=== PATIENT | female | born 1970 | race Caucasian/White ===

== ENCOUNTER 2018-12-24 11:33 | Outpatient (CLI) | payer BC ==
--- NOTE | 2018-12-24 13:27 | XRAY Report ---
Reason: VIRAL SYNDROME,DYSPNEA Procedure Date: 12/24/2018 Accession Number: [id number] / [id number] Procedure: XR - Chest 2 View X-Ray CPT Code: 03899 FULL RESULT: EXAM: CHEST RADIOGRAPHY EXAM DATE: 12/24/2018 12:11 PM. CLINICAL HISTORY: Viral syndrome, dyspnea. COMPARISON: None. TECHNIQUE: 2 views. FINDINGS: Lungs/Pleura: Bilateral airway thickening can be seen in the setting of bronchiolitis or reactive airways disease. No focal lung parenchymal consolidation identified to suggest superimposed pneumonia. No pleural effusion or pneumothorax. Mediastinum: Heart and mediastinal contours are unremarkable. Other: None. IMPRESSION: Bilateral airway thickening most suggestive of bronchitis given provided history. [facility]
== END 2018-12-24 11:34 | disposition home or self-care (01) ==
LOC: DI 11:33
PROVIDERS: ATTEND Family Medicine
DX: B34.9 Viral infection, unspecified (principal); R06.00 Dyspnea, unspecified
CPT/HCPCS: 71046

== ENCOUNTER 2020-02-14 18:36 | Emergency (ER) | payer OTHER ==
[2020-02-14 18:48] VITALS: BP 166/103
--- NOTE | 2020-02-14 19:06 | ED Physician Documentation ---
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 It is painless.) Review of Systems Constitutional: reports: Reviewed and negative Cardiac: reports: Reviewed and negative Respiratory: reports: Reviewed and negative PD PAST MEDICAL HISTORY - Past Medical History Past Medical History: Yes Psych: Depression - Past Surgical History Past Surgical History: No - Present Medications Home Medications: Ambulatory Orders Medication Instructions Recorded Confirmed Bupropion HCl [Wellbutrin Xl] 300 mg PO DAILY 02/14/20 02/14/20 - Allergies Allergies/Adverse Reactions: Allergies Allergy/AdvReac Type Severity Reaction Status Date / Time cefaclor [From Ceclor] Allergy Rash Verified 02/14/20 18:49 hydrocodone Allergy Hallucinati Verified 02/14/20 18:49 ons Sulfa (Sulfonamide Allergy Rash Verified 02/14/20 18:49 Antibiotics) latex AdvReac Rash Verified 02/14/20 18:49 - Social History Does the pt smoke?: No Smoking Status: Never smoker Does the pt drink ETOH?: No Does the pt have substance abuse?: No - Immunizations Immunizations are current?: Yes - POLST Patient has POLST: No PD ED PE NORMAL - Vitals Vital signs reviewed: Yes - General General: Alert and oriented X 3, No acute distress - Extremities Extremities: Other (There is mild discoloration of the palmar surface of the proximal phalanx of the left thumb without distal decreased capillary refill or limited range of motion. There is no tenderness. Pulse oximetry in that digit is 100%.) - Neuro Neuro: Alert and oriented X 3, Normal speech Results - Vitals Vitals: Vital Signs - 24 hr 02/14/20 18:44 Temperature 36.9 C Heart Rate 92 Respiratory 18 Rate Blood Pressure 166/103 H O2 Saturation 99 Oxygen O2 Source Room air Departure - Departure Disposition: 01 Home, Self Care Clinical Impression: Contusion of left thumb Qualifiers: Encounter type: initial encounter Damage to nail status: without damage Qualified Code(s): S60.012A - Contusion of left thumb without damage to nail, initial encounter Condition: Good Record reviewed to determine appropriate education?: Yes Instructions: ED Contusion Finger Comments: Return for new or worsening symptoms, otherwise you can return to work without specific restrictions. Your blood pressure was elevated today on check into the emergency department. This does not mean that you have hypertension, it is a common phenomenon to come to the emergency department and have elevated blood pressure. I recommend that you see your primary care physician within the week to have it rechecked when you are feeling better.
== END 2020-02-14 19:19 | disposition home or self-care (01) ==
LOC: ED 18:36
DX: S60.012A Contusion of left thumb without damage to nail, initial encounter (principal); X58.XXXA Exposure to other specified factors, initial encounter; Y99.0 Civilian activity done for income or pay; R03.0 Elevated blood-pressure reading, without diagnosis of hypertension
CPT/HCPCS: 1040M; 99281; 99282

== ENCOUNTER 2021-12-03 08:00 | Outpatient (CLI) | payer BC ==
--- NOTE | 2021-12-03 13:50 | XRAY Report ---
PROCEDURE: Chest 2 View X-Ray INDICATIONS: DYSPNEA TECHNIQUE: 2 view(s) of the chest. COMPARISON: None. FINDINGS: Surgical changes and devices: None. Lungs and pleura: No pleural effusions or pneumothorax. Lungs are clear. Mediastinum: Mediastinal contours are normal. Heart size is normal. Bones and chest wall: No suspicious bony abnormalities. Soft tissues appear unremarkable. IMPRESSION: No acute pulmonary process. Reviewed by: Zeny Sparks MD on 12/03/2021 1:49 PM [facility] Approved by: Zeny Sparks MD on 12/03/2021 1:49 PM [facility] Station ID: [id number]
== END 2021-12-03 23:59 | disposition home or self-care (01) ==
LOC: DI.S 08:00
PROVIDERS: ATTEND Emergency Medicine
DX: R06.00 Dyspnea, unspecified (principal)